=== PATIENT | female | born 1985 | race Caucasian/White ===

== ENCOUNTER 2021-10-04 00:09 | Inpatient (IN) | payer OTHER ==
[~2021-10-04 00:09] MED LIST: KLONIPIN; ZOLOFT50 M1 PO
[2021-10-04 02:21] LABS: HCT 34.9 % (37.0-47.0); HGB 11.8 g/dl (12.5-16.0); MCHC 33.8 g/dL (32.0-36.0); MCV 94.6 fL (78.0-100.0); MPV 12.3 fL (6.0-9.5); RBC 3.69 M/uL (4.20-5.40); RDW 13.2 % (11.5-14.0); WBC 10.6 K/uL (4.0-10.5)
[2021-10-04 08:38] LABS: BILIRUBIN NEGATIVE (NEGATIVE); BLOOD NEGATIVE Ery/uL (NEGATIVE); CLARITY CLEAR (CLEAR); COLOR YELLOW (YELLOW); GLUCOSE (U) NORMAL (NORMAL); LEUKOCYTES 1+ Leu/uL (NEGATIVE); NITRITE NEGATIVE (NEGATIVE); PROTEIN NEGATIVE (NEGATIVE); SPECIFIC GRAVITY 1.015 (1.001-1.030); UROBILINOGEN 0.2 mg/dL (0.2-1.0); pH 6.5 (5.0-9.0)
[2021-10-04 08:52] LABS: AMPHETAMINES NEGATIVE (NEGATIVE); BARBITURATES NEGATIVE (NEGATIVE); ECSTASY (MDMA) NEGATIVE (NEGATIVE); MARIJUANA (THC) NEGATIVE (NEGATIVE); METHADONE NEGATIVE (NEGATIVE); OPIATES NEGATIVE (NEGATIVE); OXYCODONE NEGATIVE (NEGATIVE)
[2021-10-04 09:15] LABS: BACTERIA 1+
[2021-10-05 07:03] LABS: HCT 36.2 % (37.0-47.0); HGB 12.5 g/dl (12.5-16.0); MCH 32.4 pg (25.0-31.0); MCHC 34.5 g/dL (32.0-36.0); MCV 93.8 fL (78.0-100.0); MPV 12.2 fL (6.0-9.5); RBC 3.86 M/uL (4.20-5.40); RDW 13.1 % (11.5-14.0); WBC 15.3 K/uL (4.0-10.5)
== END 2021-10-06 18:30 | disposition home or self-care (01) | DRG 807 ==
LOC: FOB 00:09
PROVIDERS: ADMIT Obstetrics & Gynecology
PROC: 10E0XZZ Delivery of Products of Conception, External Approach (ICD-10-PCS; principal; 2021-10-04)
PROC: 0HQ9XZZ Repair Perineum Skin, External Approach (ICD-10-PCS; 2021-10-04)
PROC: 3E0P7VZ Introduction of Hormone into Female Reproductive, Via Natural or Artificial Opening (ICD-10-PCS; 2021-10-04)
DX: O36.5930 Maternal care for other known or suspected poor fetal growth, third trimester, not applicable or unspecified (principal); Z37.0 Single live birth; Z3A.39 39 weeks gestation of pregnancy; O70.0 First degree perineal laceration during delivery; O62.3 Precipitate labor; Z20.822 Contact with and (suspected) exposure to COVID-19; O99.344 Other mental disorders complicating childbirth; F41.9 Anxiety disorder, unspecified; F32.A Depression, unspecified
CPT/HCPCS: 36415; 80305; 81001; 86850; 86900; 86901; J2001; J2540; J7120; U0002